=== PATIENT | male | born 1960 | race Caucasian/White ===

== ENCOUNTER 2020-01-28 10:00 | Day surgery (SDC) | payer OTHER ==
[~2020-01-28] VITALS: Ht 182.9 cm; Wt 92.9 kg
[~2020-01-28 10:00] MED LIST: ALBIPROI INH; ALBU90OI6 INH; Advil200 M1 PO; CALCAVITD PO; COMBIVENT RESPIM4 G1 INH; FISH1000 PO; FLUT110OIA INH; FLUT44OIA INH; GINKGO BILOBA30 MG PO; HYDACE5 PO; META800 PO; MONT10T PO; Multiple Vitam1 EAC1 PO; NAPR500 PO; OXYACE5T PO; PROM25 PO; Prilosec Otc20 MG; RANI150 PO; TRIPLE FLEX CA1 EACH PO; [UNRECOGNIZED DRUG - OTHER]; [UNRECOGNIZED DRUG - REMARK]; [UNRECOGNIZED DRUG - REMARK]
== END 2020-01-28 12:43 | disposition home or self-care (01) ==
LOC: ORSCSDS 10:00
PROVIDERS: Internal Medicine Gastroenterology
PROC: 0DBN8ZX Excision of Sigmoid Colon, Via Natural or Artificial Opening Endoscopic, Diagnostic (ICD-10-PCS; principal; 2020-01-28 11:15)
PROC: 0DBK8ZX Excision of Ascending Colon, Via Natural or Artificial Opening Endoscopic, Diagnostic (ICD-10-PCS; principal; 2020-01-28 11:15)
PROC: 0DBH8ZX Excision of Cecum, Via Natural or Artificial Opening Endoscopic, Diagnostic (ICD-10-PCS; principal; 2020-01-28 11:15)
DX: Z12.11 Encounter for screening for malignant neoplasm of colon (principal); Z86.010 Personal history of colon polyps; D12.0 Benign neoplasm of cecum; D12.2 Benign neoplasm of ascending colon; K63.5 Polyp of colon; K57.30 Diverticulosis of large intestine without perforation or abscess without bleeding; K64.8 Other hemorrhoids; K21.9 Gastro-esophageal reflux disease without esophagitis; E78.5 Hyperlipidemia, unspecified; Z79.899 Other long term (current) drug therapy
CPT/HCPCS: 88305; J2405; J2704; J7120

== ENCOUNTER → 2021-06-04 | Outpatient (CLI) | payer OTHER ==
[~2021-06-04] MED LIST changes: +Betamethasone D15 G1 TOP; +OXAYDO5 M1 PO; +PRAVASTATIN SOD40 MG PO
== END | disposition home or self-care (01) ==
LOC: PLD 11:17 → LAB SHORT 11:17
DX: L30.8 Other specified dermatitis (principal)
CPT/HCPCS: 88305; 88312